=== PATIENT | female | born 1990 | race Caucasian/White ===

== ENCOUNTER 2025-07-30 08:16 | Emergency (ER) | payer BC, SELFPAY ==
[2025-07-30 08:17] VITALS: BP 146/88
--- NOTE | 2025-07-30 10:00 | ED.GENMED ---
History of Present Illness
General
Chief Complaint: Skin Problem
Source: patient
Exam Limitations: none
Time Seen by Provider: 07/30/25 09:00
Nursing documentation reviewed up to this point in time: agreed with
History of Present Illness
History of Present Illness:
Patient is a 35 female presents to the ER for evaluation. Patient has a red tender area to her left groin in her hairline region. She reports she had this in the past and did require drainage. She noticed this on 3 days ago. She denies
any drainage denies any fever or chills. She also mentions that she recently had a week outpatient test. she did not officially miss her period yet.She denies any abdominal pain or cramping.
Phy Exam
General Physical Exam
General Presentation: no apparent distress
General age: appears stated age
General Skin: warm and dry
General Habitus: normal
General Mental: alert
General Hydration: appears well hydrated
Neurological Exam
Neurological Exam: alert and oriented x3
Musculoskeletal Exam
Musculoskeletal Exam: full ROM
Skin Exam
Skin Exam: normal color, warm/dry and other (+ Small area to left groin hairline of erythema and induration no fluctuance no lymphangitis)
Psychiatric Exam
Psychiatric Exam: normal mood/affect
Course
Orders/Labs/Results
Orders:
Orders
07/30/25 09:30
Test Result ONCE
07/30/25 09:39
HCG, Urine Qualitative Screen Urgent
Date Specimen was Collected: 07/30/25
Time Specimen was Collected: 09:37
07/30/25 10:13
Cephalexin Monohydrate [Keflex] 500 mg PO NOW STA
Vital Signs
Initial and Last Documented VS:
Initial Vital Signs
Temp Pulse Resp BP Pulse Ox
98.1 F 85 18 146/88 98
07/30/25 08:17 07/30/25 08:17 07/30/25 08:17 07/30/25 08:17 07/30/25 08:17
Last Documented Vital Signs
Temp Pulse Resp BP Pulse Ox
98.1 F 80 18 122/80 98
07/30/25 08:17 07/30/25 10:28 07/30/25 10:28 07/30/25 10:28 07/30/25 10:28
MDM/Problems Addressed
Differential Diagnosis Includes:
Not limited to abscess cellulitis infected hair follow
MDM/Problems Addressed:
Patient has a mild area of induration to left groin area possible early abscess folliculitis/ however with very mild induration no fluctuance will hold off on drainage at this time. Will DC with warm compresses and Keflex. Patient's test
was weakly positive discussed to follow-up with her [employer]. She has not officially missed her period yet.
*Pulse Oximetry
SaO2: 98
Oxygen Mode of Delivery: Room air
Patient hypoxic: no
*Critical Care Note
Total Time (30-74mins, 75-104mins- exclusive of procedures): Not Applicable
ED Attending Note
-
Portions of this chart may have been created with voice recognition software.� Occasional wrong word or��sound alike� substitutions may have occurred due to the inherent limitations of voice recognition software.
Discharge Plan
Departure
Patient Disposition: Home (Routine Discharge)
Date of Disposition: 07/30/25
Time of Disposition: 10:16
Patient with high blood pressure during this ER visit?: Yes
Condition: Fair
Covid-19: Not Applicable
Discharge Problem:
possible early abscess
Instructions: BLOOD PRESSURE
Prescriptions:
New
cephalexin 500 mg capsule
500 mg PO Q6H Qty: 28 0RF
Referrals:
NONE,* [Family Provider, Internal Medicine]
Activity Restrictions/Additional Instructions:
As discussed symptoms are possible early abscess/ versus infected hair follicle. At this time we did discuss holding off on drainage. Warm compresses to affected area several times a day along with antibiotics. You were given first dose of Keflex
here in the ER and prescription was sent to your pharmacy. Take as directed.
follow-up with your family doctor in the next several days for wound check.
Also as discussed your HCG was lightly positive here in the ER. Please also follow-up with your gynecology for further evaluation.
Interventions
Interventions:
*Risk Screen - Suicide Last Done: 07/30/25 08:17
*General Assessment Last Done: 07/30/25 08:17
*Neglect/Abuse Screening Last Done: 07/30/25 08:17
*ED- Fall Risk Assessment Last Done: 07/30/25 09:27
*ED COVID-19 Vaccine History Last Done: 07/30/25 09:27
*ED Influenza Vaccine History Last Done: 07/30/25 09:27
*Nursing Disposition Last Done: 07/30/25 10:28
ED-Skin Assessment Last Done: 07/30/25 09:27
Discharge Date and Time
Discharge Date/Time: 07/30/25 10:34
Print Language: CITIZEN [place]
[2025-07-30] MEDS: KEFLEX 500 MG PO (10:23)
[2025-07-30 10:28] VITALS: BP 122/80
== END 2025-07-30 10:34 | disposition home or self-care (01) ==
LOC: EMR 08:16
PROVIDERS: Nurse Practitioner; EMERGENCY PHYSICIAN Emergency Medicine
DX: L53.9 Erythematous condition, unspecified (principal); R03.0 Elevated blood-pressure reading, without diagnosis of hypertension
CPT/HCPCS: 99283; 81025